=== PATIENT | male | born 1990 | race Caucasian/White ===

== ENCOUNTER 2023-11-16 16:05 | Emergency (ER) | payer OTHER, SELFPAY ==
[2023-11-16 16:16] VITALS: BP 121/77
[2023-11-16 16:35] LABS: % Basophils 0.4 % (0-2); % Eosinophils 1.1 % (0-6); % Immature Granulocytes 0.3 % (0-0.5); % Lymphocytes 2.6 % (20.5-51.1); % Monocytes 4.2 % (1.7-9.3); % Neutrophils 91.4 % (42.2-75.2); Absolute Basophils 0.1 10^3/uL (0-0.2); Absolute Eosinophils 0.1 10^3/uL (0-0.7); Absolute Lymphocytes 0.3 10^3/uL (1.2-3.4); Absolute Monocytes 0.5 10^3/uL (0.1-0.6); Absolute Neutrophils 10.8 10^3/uL (1.4-6.5); Hematocrit 43.5 % (39.0-52.0); Hemoglobin 13.8 g/dL (13.0-18.0); Mean Corp Hgb Conc. 31.7 g/dL (33.0-37.0); Mean Corpuscular Hgb 20.8 pg (27.0-31.0); Mean Corpuscular Volume 65.5 fL (80.0-94.0); Mean Platelet Volume 10.5 fL (7.4-10.4); Nucleated Red Blood Cells % 0 % (-); Platelet Count 294 10^3/uL (130-400); Red Blood Cell Count 6.64 10^6/uL (4.70-6.10); Red Cell Dist. Width 16.4 % (11.5-14.5); White Blood Cell Count 11.8 10^3/uL (4.8-10.8)
[2023-11-16 16:52] LABS: ALT (SGPT) 19 U/L (0-50); AST (SGOT) 25 U/L (17-59); Albumin 4.6 g/dl (3.5-5.0); Alkaline Phosphatase 77 U/L (38-126); Blood Urea Nitrogen 23 mg/dl (9-20); Calcium 9.4 mg/dl (8.4-10.2); Carbon Dioxide 25 mmol/L (22-30); Chloride 100 mmol/L (98-107); Glucose 175 mg/dl (70-99); Lipase 59 U/L (23-300); Potassium 4.5 mmol/L (3.5-5.1); Sodium 134 mmol/L (135-145); Total Bilirubin 1.6 mg/dl (0.2-1.3); Total Protein 7.3 g/dl (6.3-8.2); eGFR > 60.00
[2023-11-16] MEDS: NSS 1000 IV (18:12)
[2023-11-16] MEDS: ZOFRAN 4 MG IV ×2 (18:12→19:58)
[2023-11-16 18:21] LABS: Urine Albumin Trace (Neg - Trace); Urine Bilirubin 1+ (Negative); Urine Character Clear (Clear); Urine Color Yellow; Urine Glucose 1+ (Negative); Urine Ketone 1+ (Negative); Urine Leukocyte Negative (Negative); Urine Nitrite Negative (Negative); Urine Occult Blood Negative (Negative); Urine Urobilinogen 1+ (Neg - 1+)
[2023-11-16] MEDS: DILAUDID 0.5 MG IV (19:58)
[2023-11-16 20:00] VITALS: BP 129/66
[2023-11-16] MEDS: ZITHROMAX 500 MG PO (20:21)
--- NOTE | 2023-11-16 23:32 | ED.GENMED ---
History of Present Illness
General
Chief Complaint: Abdominal Symptoms
Source: patient
Exam Limitations: none
Time Seen by Provider: 11/16/23 17:36
Nursing documentation reviewed up to this point in time: agreed with
Travel History
Have you had any contact with someone who has COVID-19?: No
Do you have any symptoms of coronavirus? Fever > 100 degrees, chills, cough, shortness of breath, sore throat, loss of taste or smell, muscle aches, or headache?: No
History of Present Illness
History of Present Illness:
States he developed vomiting at 12:30 this afternoon. Notes abdominal pain prior to vomiting. Took 3 pepto's without relief. Brought to ED by family for eval. Denies fever/chills.
Past History
Past History
ED Past Medical History: IDDM
ED Past Surgical History: Other (Hernia repair, wisdom tooth extraction, adenoids removed)
Social History
Tobacco: Non-smoker
Alcohol: None
Drug: None
Personal: Single
Living: with family
Employment: Employed
Review of Systems
Review of Systems
Allergies reviewed?: Yes
All Other Systems: ROS reviewed and negative except as documented in HPI and ROS
Constitutional: Reports no symptoms
EENT: Reports no symptoms
Respiratory: Reports no symptoms
Cardiac: Reports no symptoms
ABD/GI: Reports abdominal pain, nausea and vomiting
: Reports no symptoms
Musculoskeletal: Reports no symptoms
Skin: Reports no symptoms
Neurological: Reports no symptoms
Psychiatric: Reports no symptoms
Phy Exam
General Physical Exam
General Presentation: well appearing and mild distress
General age: appears stated age
General Skin: warm and dry
General Habitus: normal
General Mental: alert
General Hydration: appears well hydrated
Course
Orders/Labs/Results
Orders:
Orders
11/16/23 16:20
IV Insert/Care/Rem.- Treatment PRN
11/16/23 16:25
Complete Blood Count/With Diff Urgent
Comprehensive Metabolic Panel Urgent
Lipase Urgent
11/16/23 18:01
0.9% Sodium Chloride 1000 ml [Nss] 1,000 ml IV BOLUS
Ondansetron Injectable [Zofran] 4 mg IV NOW STA
US Abdomen Complete/Upper Urgent
Comment:
Reason For Exam: upper abd pain
11/16/23 18:15
Urinalysis Reflex To Culture Urgent
Date Specimen was Collected: 11/16/23
Time Specimen was Collected: 18:13
11/16/23 19:29
CT Abd/pelvis W Iv Cont Urgent
Comment:
Reason For Exam: abdominal and back pain, vomiting
11/16/23 19:30
HYDROmorphone [Dilaudid] 0.5 mg IV NOW STA
Ondansetron Injectable [Zofran] 4 mg IV NOW STA
11/16/23 20:13
Azithromycin [Zithromax] 500 mg PO NOW STA
Abnormal Lab Results
11/16/23 11/16/23
16:25 18:15
WBC 11.8 H 10^3/uL
(4.8-10.8)
RBC 6.64 H 10^6/uL
(4.70-6.10)
MCV 65.5 L fL
(80.0-94.0)
MCH 20.8 L pg
(27.0-31.0)
MCHC 31.7 L g/dL
(33.0-37.0)
RDW 16.4 H %
(11.5-14.5)
MPV 10.5 H fL
(7.4-10.4)
Absolute Neuts (auto) 10.8 H 10^3/uL
(1.4-6.5)
Absolute Lymphs (auto) 0.3 L 10^3/uL
(1.2-3.4)
Neutrophils % 91.4 H %
(42.2-75.2)
Lymphocytes % 2.6 L %
(20.5-51.1)
Sodium 134 L mmol/L
(135-145)
BUN 23 H mg/dl
(9-20)
Glucose 175 H mg/dl
(70-99)
Total Bilirubin 1.6 H mg/dl
(0.2-1.3)
Urine Ketones 1+ A
(Negative)
Urine Bilirubin 1+ A
(Negative)
Urine Glucose 1+ A
(Negative)
11/16/23 16:25
11/16/23 16:25
Vital Signs
Initial and Last Documented VS:
Initial Vital Signs
Temp Pulse Resp BP Pulse Ox
100 F 85 22 121/77 96
11/16/23 16:16 11/16/23 16:16 11/16/23 16:16 11/16/23 16:16 11/16/23 16:16
Last Documented Vital Signs
Temp Pulse Resp BP Pulse Ox
100 F 97 18 129/66 100
11/16/23 16:16 11/16/23 20:00 11/16/23 20:00 11/16/23 20:00 11/16/23 20:00
*Radiology
Radiology exam reviewed: radiology read reviewed
*Pulse Oximetry
Patient hypoxic: no
*Critical Care Note
Total Time (30-74mins, 75-104mins- exclusive of procedures): Not Applicable
ED Attending Note
-
Portions of this chart may have been created with voice recognition software.� Occasional wrong word or��sound alike� substitutions may have occurred due to the inherent limitations of voice recognition software.
Discharge Plan
Departure
Patient Disposition: Home (Routine Discharge)
Date of Disposition: 11/16/23
Time of Disposition: 20:10
Patient with high blood pressure during this ER visit?: No
Condition: Good
Covid-19: Not Applicable
Discharge Problem:
Enteritis
Instructions: Diarrhea in adolescents and adults, Clear Liquid Diet, Dehydration, Adult (DC)
Prescriptions:
New
azithromycin 500 mg tablet
500 mg PO DAILY 2 Days Qty: 2 0RF
No Action
bismuth subsalicylate [[place] Bismuth] 1 TABLET tablet,chewable
2 tab PO BIDPRN PRN (Reason: nausea/vomiting/upset stomach)
insulin glargine [Lantus Solostar U-100 Insulin] 300 UNITS/3 ML insulin pen
21 units SC HS
insulin glulisine U-100 [Apidra SoloStar U-100 Insulin] 100 UNIT/ML insulin pen
2 unit SC AC Qty: 1 0RF
Rx Instructions:
moderate glucose sliding scale
erythromycin 5 mg/gram (0.5 %) ointment
0.5 inch ophthalmic (eye) QID Qty: 3.5 0RF
Referrals:
Love Agudelo DO [Family Provider] - Tomorrow
Activity Restrictions/Additional Instructions:
Return to the emergency department for fever/chill, increasing pain/vomiting/diarrhea, or for any further concerns.
Interventions
Interventions:
*Risk Screen - Suicide Last Done: 11/16/23 16:16
*General Assessment Last Done: 11/16/23 16:16
*Neglect/Abuse Screening Last Done: 11/16/23 16:16
*Nursing Disposition Last Done: 11/16/23 20:41
LU-Idnzxm-Stgpbphcip Assessment Last Done: 11/16/23 20:00
Discharge Date and Time
Discharge Date/Time: 11/16/23 20:42
Print Language: LUXEMBOURGER
== END 2023-11-16 20:42 | disposition home or self-care (01) ==
LOC: EMR 16:05
PROVIDERS: EMERGENCY PHYSICIAN Emergency Medicine; FAMILY PHYSICIAN Student in an Organized Health Care Education/Training Program
DX: K52.9 Noninfective gastroenteritis and colitis, unspecified (principal); E11.9 Type 2 diabetes mellitus without complications; Z79.4 Long term (current) use of insulin; Z88.8 Allergy status to other drugs, medicaments and biological substances
CPT/HCPCS: 99285; 96375; 96361; 96374; 96376; 74177; 76700; 80053; 81003; 83690; 85025; Q9967

== ENCOUNTER 2024-07-11 19:41 | Inpatient (IN) | payer OTHER, SELFPAY ==
[2024-07-11] VITALS (17 sets, daily range): BP systolic 103–145; BP diastolic 67–84; BMI 28.5
--- NOTE | 2024-07-11 16:45 | ED.GENMED ---
History of Present Illness
<JOSIAH Man Last Filed: 07/11/24 22:16>
General
Chief Complaint: Abdominal Symptoms
Source: patient
Exam Limitations: none
Time Seen by Provider: 07/11/24 16:45
Nursing documentation reviewed up to this point in time: agreed with
History of Present Illness
History of Present Illness:
33-year-old male with past medical history of type 1 diabetes presents emergency department today with concerns of vomiting. Patient states that this started an hour and a half ago. Patient states that the vomiting has since resolved. Patient
denies any nausea. Patient completely asymptomatic at this time. Similar episode happened 2 days ago and he also had diarrhea and he felt hot at the time. He states that his boss was sick with similar symptoms a few days ago. Patient also notes
a mild sore throat. Patient denies any cough, runny nose, sinus pressure, headaches. Patient denies any abdominal pain, fevers or chills, chest pain, shortness of breath. He does note that his boss was sick patient states that when he had
vomiting he had to give an extra dose of insulin.
Past History
<JOSIAH Man Last Filed: 07/11/24 22:16>
Past History
ED Past Medical History: IDDM
ED Past Surgical History: Other (Hernia repair, wisdom tooth extraction, adenoids removed)
Social History
Tobacco: Non-smoker
Alcohol: None
Drug: None
Personal: Single
Living: with family
Employment: Employed
Review of Systems
<JOSIAH Man Last Filed: 07/11/24 22:16>
Review of Systems
All Other Systems: ROS reviewed and negative except as documented in HPI and ROS
Phy Exam
<JOSIAH Man Last Filed: 07/11/24 22:16>
Physical Exam
Physical Exam:
General: Patient is well appearing and in no acute distress; non-toxic
Skin: Warm and dry, no rashes or lesions
Head: Normocephalic, atraumatic
Eyes: Sclera non-icteric. EOMs intact. PERRLA.
Mouth: Mild pharyngeal erythema noted. No intraoral lesions. Uvula midline.
Cardiac: Regular rate and rhythm, no murmurs
Peripheral Vascular: No lower extremity swelling or edema
Pulm: Normal respiratory effort, no wheezes, rales, or rhonchi
Abdomen: No abdominal tenderness to palpation, no palpable masses
Neuro: CN II-XII intact, no focal neurologic deficits.
Psychiatric: Appropriate mood and affect.
Course
<Debora Vásquez PA-C - Last Filed: 07/11/24 22:16>
Orders/Labs/Results
Orders:
Orders
07/11/24 16:45
IV Insert/Care/Rem.- Treatment PRN
07/11/24 17:21
B-Hydroxybutyrate Urgent
Comment: ADDON
COVID-19 Antigen Urgent
Source: Nasal Swab
Complete Blood Count/With Diff Urgent
Comprehensive Metabolic Panel Urgent
Influenza A+B Rapid Molecular Urgent
KUMAR Source: Nasal Swab
Specimen Description:
07/11/24 17:38
Bedside Glucose- Treatment ONCE
07/11/24 18:10
0.9% Sodium Chloride 1000 ml [Nss] 1,000 ml IV BOLUS
07/11/24 18:11
Urinalysis Reflex To Culture Urgent
07/11/24 18:17
Venous Blood Gas Urgent
%Oxygen/Room Air: 96/RA
07/11/24 18:22
Diphenhydramine [Benadryl] 25 mg IV NOW STA
07/11/24 18:30
Reg Insulin 100 Units/100 ml [Novolin R Insulin Infusion] 100 units in 100 ml IV ORDERED RATE
07/11/24 19:29
Admit/Transfer Patient As Directed
Co-Sign Provider:
Level of Care: Inpatient admission
Assign to:: ICU
Physician / Group: simon
Diagnosis: DKA
Reason for Hospitalization: DKA
Expected length of stay greater than two midnights?: Yes
ELOS- Estimated Length of Stay in days: 3
I certify the patient meets the requirements for IP care: Yes
PRN Pain Medication Management As Directed
May give lesser potent ordered pain med per pt: Yes
preference::
Protocol:: Medication orders for pain may be administered in a
manner that supports deferring to patient preference
when the pt is:
- Requesting an ordered lesser potent pain medication.
Least to most potent pain medications are defined
as: acetaminophen < NSAID < tramadol < opioids
(morphine, oxycodone, hydromorphone).
- Requesting a lesser dose of the same medication IF
ORDERED.
- Requesting a less intrusive route of administration
if both routes are prescribed by the provider (PO <
IV).
07/11/24 19:30
Code Status As Directed
Resuscitation Status: Full Code
07/11/24 20:00
Dextrose 5%/0.45%Sodchl 1000ML [D5/0.45%NaCl] 1,000 ml IV 100 mls/hr
07/11/24 20:23
Reg Insulin 100 Units/100 ml [Novolin R Insulin Infusion] 100 units in 100 ml IV PER PROTOCOL
Initial dose in units/hr, then titrate:: 3
07/11/24 21:09
Mix Mill Tender Consult Routine
Consulting Provider: Javy Hodges
Was physician already notified: Yes
Glycohemoglobin (HgbA1c) Routine
Activity As Directed
Activity Level: As Tolerated
Bedside Glucose Monitoring As Directed
Frequency: Q1H
Intake/ Output As Directed
Frequency: Per unit guidelines
Notify MD As Directed
Notify physician if: Nurse to contact provider when glucose reaches 250 to obtain orders for D5 0.45 NaCl
Vital Signs As Directed
Frequency: Per unit guidelines
DX Deep Vein Thrombosis Video Routine
07/12/24 06:00
Complete Blood Count/No Diff IN AM
07/12/24 18:00
Enoxaparin Sodium [Lovenox] 40 mg SC QPM
07/13/24 06:00
Complete Blood Count/No Diff IN AM
07/14/24 06:00
Complete Blood Count/No Diff IN AM
Abnormal Lab Results
07/11/24 07/11/24 07/11/24
17:21 18:06 18:17
RBC 6.21 H 10^6/uL
(4.70-6.10)
MCV 66.0 L fL
(80.0-94.0)
MCH 20.9 L pg
(27.0-31.0)
MCHC 31.7 L g/dL
(33.0-37.0)
RDW 17.2 H %
(11.5-14.5)
MPV 10.5 H fL
(7.4-10.4)
Abs Immat Gran (auto) 0.1 H 10^3/uL
(0-0.05)
Absolute Neuts (auto) 7.4 H 10^3/uL
(1.4-6.5)
Absolute Lymphs (auto) 0.8 L 10^3/uL
(1.2-3.4)
Immature Gran % 0.6 H %
(0-0.5)
Neutrophils % 87.8 H %
(42.2-75.2)
Lymphocytes % 8.9 L %
(20.5-51.1)
VBG pCO2 32 L mmHg
(35-48)
VBG pO2 120 H mmHg
(30-50)
VBG HCO3 18.1 L mmol/L
(22-27)
Carbon Dioxide 13 L* mmol/L
(22-30)
Glucose 297 H mg/dl
(70-99)
Total Bilirubin 1.4 H mg/dl
(0.2-1.3)
Albumin 5.1 H g/dl
(3.5-5.0)
B-Hydroxybutyrate 4.18 H mmol/L
(0.02-0.27)
POC Glucose 218 H mg/dl
(70-99)
07/11/24
19:09
RBC
MCV
MCH
MCHC
RDW
MPV
Abs Immat Gran (auto)
Absolute Neuts (auto)
Absolute Lymphs (auto)
Immature Gran %
Neutrophils %
Lymphocytes %
VBG pCO2
VBG pO2
VBG HCO3
Carbon Dioxide
Glucose
Total Bilirubin
Albumin
B-Hydroxybutyrate
POC Glucose 204 H mg/dl
(70-99)
07/11/24 17:21
07/11/24 17:21
Vital Signs
Initial and Last Documented VS:
Initial Vital Signs
Temp Pulse Resp BP Pulse Ox
98.1 F 98 20 123/82 99
07/11/24 16:02 07/11/24 16:02 07/11/24 16:02 07/11/24 16:02 07/11/24 16:02
Last Documented Vital Signs
Temp Pulse Resp BP Pulse Ox
98.2 F 90 22 116/69 95
07/11/24 21:17 07/11/24 20:45 07/11/24 20:45 07/11/24 20:15 07/11/24 20:45
<Jared Ibarra, DO - Last Filed: 07/11/24 22:22>
Orders/Labs/Results
Orders:
Orders
07/11/24 16:45
IV Insert/Care/Rem.- Treatment PRN
07/11/24 17:21
B-Hydroxybutyrate Urgent
Comment: ADDON
COVID-19 Antigen Urgent
Source: Nasal Swab
Complete Blood Count/With Diff Urgent
Comprehensive Metabolic Panel Urgent
Influenza A+B Rapid Molecular Urgent
KUMAR Source: Nasal Swab
Specimen Description:
07/11/24 17:38
Bedside Glucose- Treatment ONCE
07/11/24 18:10
0.9% Sodium Chloride 1000 ml [Nss] 1,000 ml IV BOLUS
07/11/24 18:11
Urinalysis Reflex To Culture Urgent
07/11/24 18:17
Venous Blood Gas Urgent
%Oxygen/Room Air: 96/RA
07/11/24 18:22
Diphenhydramine [Benadryl] 25 mg IV NOW STA
07/11/24 18:30
Reg Insulin 100 Units/100 ml [Novolin R Insulin Infusion] 100 units in 100 ml IV ORDERED RATE
07/11/24 19:29
Admit/Transfer Patient As Directed
Co-Sign Provider:
Level of Care: Inpatient admission
Assign to:: ICU
Physician / Group: simon
Diagnosis: DKA
Reason for Hospitalization: DKA
Expected length of stay greater than two midnights?: Yes
ELOS- Estimated Length of Stay in days: 3
I certify the patient meets the requirements for IP care: Yes
PRN Pain Medication Management As Directed
May give lesser potent ordered pain med per pt: Yes
preference::
Protocol:: Medication orders for pain may be administered in a
manner that supports deferring to patient preference
when the pt is:
- Requesting an ordered lesser potent pain medication.
Least to most potent pain medications are defined
as: acetaminophen < NSAID < tramadol < opioids
(morphine, oxycodone, hydromorphone).
- Requesting a lesser dose of the same medication IF
ORDERED.
- Requesting a less intrusive route of administration
if both routes are prescribed by the provider (PO <
IV).
07/11/24 19:30
Code Status As Directed
Resuscitation Status: Full Code
07/11/24 20:00
Dextrose 5%/0.45%Sodchl 1000ML [D5/0.45%NaCl] 1,000 ml IV 100 mls/hr
07/11/24 20:23
Reg Insulin 100 Units/100 ml [Novolin R Insulin Infusion] 100 units in 100 ml IV PER PROTOCOL
Initial dose in units/hr, then titrate:: 3
07/11/24 21:09
Mix Mill Tender Consult Routine
Consulting Provider: Javy Hodges
Was physician already notified: Yes
Glycohemoglobin (HgbA1c) Routine
Activity As Directed
Activity Level: As Tolerated
Bedside Glucose Monitoring As Directed
Frequency: Q1H
Intake/ Output As Directed
Frequency: Per unit guidelines
Notify MD As Directed
Notify physician if: Nurse to contact provider when glucose reaches 250 to obtain orders for D5 0.45 NaCl
Vital Signs As Directed
Frequency: Per unit guidelines
DX Deep Vein Thrombosis Video Routine
07/12/24 06:00
Complete Blood Count/No Diff IN AM
07/12/24 18:00
Enoxaparin Sodium [Lovenox] 40 mg SC QPM
07/13/24 06:00
Complete Blood Count/No Diff IN AM
07/14/24 06:00
Complete Blood Count/No Diff IN AM
Abnormal Lab Results
07/11/24 07/11/24 07/11/24
17:21 18:06 18:17
RBC 6.21 H 10^6/uL
(4.70-6.10)
MCV 66.0 L fL
(80.0-94.0)
MCH 20.9 L pg
(27.0-31.0)
MCHC 31.7 L g/dL
(33.0-37.0)
RDW 17.2 H %
(11.5-14.5)
MPV 10.5 H fL
(7.4-10.4)
Abs Immat Gran (auto) 0.1 H 10^3/uL
(0-0.05)
Absolute Neuts (auto) 7.4 H 10^3/uL
(1.4-6.5)
Absolute Lymphs (auto) 0.8 L 10^3/uL
(1.2-3.4)
Immature Gran % 0.6 H %
(0-0.5)
Neutrophils % 87.8 H %
(42.2-75.2)
Lymphocytes % 8.9 L %
(20.5-51.1)
VBG pCO2 32 L mmHg
(35-48)
VBG pO2 120 H mmHg
(30-50)
VBG HCO3 18.1 L mmol/L
(22-27)
Carbon Dioxide 13 L* mmol/L
(22-30)
Glucose 297 H mg/dl
(70-99)
Total Bilirubin 1.4 H mg/dl
(0.2-1.3)
Albumin 5.1 H g/dl
(3.5-5.0)
B-Hydroxybutyrate 4.18 H mmol/L
(0.02-0.27)
POC Glucose 218 H mg/dl
(70-99)
07/11/24
19:09
RBC
MCV
MCH
MCHC
RDW
MPV
Abs Immat Gran (auto)
Absolute Neuts (auto)
Absolute Lymphs (auto)
Immature Gran %
Neutrophils %
Lymphocytes %
VBG pCO2
VBG pO2
VBG HCO3
Carbon Dioxide
Glucose
Total Bilirubin
Albumin
B-Hydroxybutyrate
POC Glucose 204 H mg/dl
(70-99)
07/11/24 17:21
07/11/24 17:21
Vital Signs
Initial and Last Documented VS:
Initial Vital Signs
Temp Pulse Resp BP Pulse Ox
98.1 F 98 20 123/82 99
07/11/24 16:02 07/11/24 16:02 07/11/24 16:02 07/11/24 16:02 07/11/24 16:02
Last Documented Vital Signs
Temp Pulse Resp BP Pulse Ox
98.2 F 90 22 116/69 95
07/11/24 21:17 07/11/24 20:45 07/11/24 20:45 07/11/24 20:15 07/11/24 20:45
<Debora Vásquez PA-C - Last Filed: 07/11/24 22:16>
MDM/Problems Addressed
Differential Diagnosis Includes:
ddx include gastroenteritis, viral syndrome, GERD, COVID
MDM/Problems Addressed:
33-year-old male presents emergency department today with concerns of nausea and vomiting. He is a type I diabetic. Here emergency department, he notes that his symptoms have resolved, he is afebrile. No abdominal tenderness on exam. Labs
resulted showing concern for diabetic ketoacidosis. Fluids started and insulin ordered. Potassium within normal limits. Patient referred for admission.
Chronic conditions affecting care:
type 1 diabetes
<Debora Vásquez PA-C - Last Filed: 07/11/24 22:16>
*Critical Care Note
Total Time (30-74mins, 75-104mins- exclusive of procedures): Not Applicable
<Jared Ibarra DO - Last Filed: 07/11/24 22:22>
*Critical Care Note
Total Time (30-74mins, 75-104mins- exclusive of procedures): 30
comment:
Critical care statement: A total of 30 minutes of critical care time was provided for this patient. This includes management of unstable vital signs, evaluation of the patient at bedside, reviewing the patient's pertinent medical records, discussion
with consultants, review of old EKGs and review of pertinent medical records. This time with separate from time utilized to perform the aforementioned documented procedures
ED Attending Note
<Debora Vásquez PA-C - Last Filed: 07/11/24 22:16>
-
Portions of this chart may have been created with voice recognition software.� Occasional wrong word or��sound alike� substitutions may have occurred due to the inherent limitations of voice recognition software.
<Jared Ibarra DO - Last Filed: 07/11/24 22:22>
ED Attending Note
Patient seen and examined by attending physician: Yes
I performed a history and physical exam of patient and discussed management with resident, I reviewed resident's note and agree with documented findings and plan of care.: Yes
ED Attending Note:
I have reviewed and agree with history and treatment plan by Debora Vásquez. My exam revealed 33-year-old male no acute distress, abdomen exam benign. No respiratory distress. Labs and symptoms consistent with DKA. Admit to hospitalist. IV
insulin and IV fluids given.
Discharge Plan
Departure
Patient Disposition: Admit
Date of Disposition: 07/11/24
Time of Disposition: 19:05
Admit to: Med/Surg
Presentation/result/management discussed w/ accepting MD/DO: Hospitalist
Patient with high blood pressure during this ER visit?: Yes
Condition: Fair
Discharge Problem:
Diabetic ketoacidosis
Interventions
Interventions:
*Risk Screen - Suicide Last Done: 07/11/24 16:02
*General Assessment Last Done: 07/11/24 16:02
*Neglect/Abuse Screening Last Done: 07/11/24 16:02
ED- Fall Risk Assessment Last Done: 07/11/24 17:29
*ED COVID-19 Vaccine History Last Done: 07/11/24 17:29
*Nursing Disposition Last Done: 07/11/24 21:15
SU-Iwefow-Zvhrhnlxtd Assessment Last Done: 07/11/24 17:31
Discharge Date and Time
Discharge Date/Time: 07/11/24 21:15
[2024-07-11 17:45] LABS: % Basophils 0.6 % (0-2); % Eosinophils 0.2 % (0-6); % Immature Granulocytes 0.6 % (0-0.5); % Lymphocytes 8.9 % (20.5-51.1); % Monocytes 1.9 % (1.7-9.3); % Neutrophils 87.8 % (42.2-75.2); Absolute Basophils 0.1 10^3/uL (0-0.2); Absolute Immature Granulocytes 0.1 10^3/uL (0-0.05); Absolute Lymphocytes 0.8 10^3/uL (1.2-3.4); Absolute Monocytes 0.2 10^3/uL (0.1-0.6); Absolute Neutrophils 7.4 10^3/uL (1.4-6.5); Mean Corp Hgb Conc. 31.7 g/dL (33.0-37.0); Mean Corpuscular Hgb 20.9 pg (27.0-31.0); Mean Platelet Volume 10.5 fL (7.4-10.4); Nucleated Red Blood Cells % 0 % (-); Platelet Count 369 10^3/uL (130-400); Red Blood Cell Count 6.21 10^6/uL (4.70-6.10); Red Cell Dist. Width 17.2 % (11.5-14.5); White Blood Cell Count 8.4 10^3/uL (4.8-10.8)
[2024-07-11 17:51] LABS: COVID-19 Antigen Negative (Negative)
[2024-07-11 18:06] LABS: ALT (SGPT) 42 U/L (0-50); AST (SGOT) 42 U/L (17-59); Albumin 5.1 g/dl (3.5-5.0); Alkaline Phosphatase 102 U/L (38-126); Blood Urea Nitrogen 20 mg/dl (9-20); Calcium 10.1 mg/dl (8.4-10.2); Carbon Dioxide 13 mmol/L (22-30); Chloride 98 mmol/L (98-107); Estimated Creatinine Clearance 117 ml/min; Glucose 297 mg/dl (70-99); Potassium 4.7 mmol/L (3.5-5.1); Sodium 139 mmol/L (135-145); Total Bilirubin 1.4 mg/dl (0.2-1.3); Total Protein 7.7 g/dl (6.3-8.2); eGFR > 60.00
[2024-07-11 18:07] LABS: Glucose - Point of Care 218 mg/dl (70-99)
[2024-07-11] MEDS: NSS 1000 IV (18:20)
[2024-07-11 18:31] LABS: Venous Blood Gas B.E. -6.3 mmol/L (-4 to +4); Venous Blood Gas HCO3 18.1 mmol/L (22-27); Venous Blood Gas O2 Sat % 99.4 %; Venous Blood Gas pCO2 32 mmHg (35-48); Venous Blood Gas pH 7.36 (7.32-7.43); Venous Blood Gas pO2 120 mmHg (30-50)
[2024-07-11 18:37] LABS: B-Hydroxybutyrate 4.18 mmol/L (0.02-0.27)
[2024-07-11 18:40] LABS: Venous Blood Gas O2 Therapy 96/RA
--- NOTE | 2024-07-11 19:07 | HPS.HSE ---
Family Physician
-
Family Physician: NOT KNOW UNKNOWN - PT DOES
Chief Complaint
-
vomitting
History of Present Illness
33-year-old male with past medical history of type 1 diabetes presents emergency department today with concerns of vomiting. he vomited twice on . he also had an diarrhea on . he was fine on Friday and Friday. today afternoon, he
vomited couple times. Patient denies any cough, runny nose, sinus pressure, headaches. Patient denies any abdominal pain, fevers or chills, chest pain, shortness of breath. he denied dysuria or hematuria. at home his blood sugar was in 600's. he
took 15 units of insulin. he has not been taking Lantus, as his insurance does not cover.
noted dehydrated. admitting for further management.
Medical History
Past Medical History
Past Medical History: Reports Other
Additional Past Medical History:
Hyperlipidemia
Type 1 diabetes
Past Surgical History: Reports Other
Additional Past Surgical History:
adenoidectomy
hernia repair
Social History
Tobacco: Other (nicotine pouch)
Alcohol: Occasional
Drug: None
Employment: Employed
Family History
Family History: Not pertinent
Allergies / Home Medications
Allergies reflects when Allergies were last updated in [facility].
Home Medications with original date entered in [facility]
Allergy/Medication List:
Allergies
Allergy/AdvReac Type Severity Reaction Status Date / Time
insulin detemir Allergy Rash Verified 07/11/24 16:07
[From Levemir U-100 Insulin]
insulin glulisine Allergy Rash Verified 07/11/24 16:07
[From Apidra U-100 Insulin]
insulin lispro Allergy Rash Verified 07/11/24 16:07
[From Humalog Mix]
insulin lispro protamine Allergy Rash Verified 07/11/24 16:07
[From Humalog Mix]
Home Medications
insulin glargine 100 unit/mL (3 mL) subcutaneous pen (Lantus Solostar U-100 Insulin) 20 units SC HS Diabetes 02/05/21
ibuprofen 200 mg tablet 600 mg PO DAILY 07/11/24
insulin aspart U-100 100 unit/mL (3 mL) subcutaneous pen (Novolog FlexPen U-100 Insulin aspart) 10 - 15 unit SC TID 07/11/24
therapeutic multivitamin 1 tab PO DAILY 07/11/24
Review of Systems
-
Constitutional: Reports No Symptoms
EENT: Reports No Symptoms
Respiratory: Reports No Symptoms
Cardiac: Reports No Symptoms
Abdomen/GI: Reports Vomiting
: Reports No Symptoms
Musculoskeletal: Reports No Symptoms
Skin: Reports No Symptoms
Neurological: Reports No Symptoms
Endocrine: Reports No Symptoms
Hematologic/Lymphatic: Reports No Symptoms
Psych: Reports No Symptoms
Physical Exam
Vital Signs
Vital Signs
Temp Pulse Resp BP Pulse Ox
98.1 F 98 16 119/73 96
07/11/24 16:02 07/11/24 18:45 07/11/24 18:45 07/11/24 18:00 07/11/24 18:45
Physical Exam
General: Well Developed, Well Nourished and No Apparent Distress
HEENT: NormoCephalic, Moist mucous membranes and Atraumatic
Respiratory: Clear
Cardiac: S1/S2 and Regular Rhythm; No Murmur or Rub
GI: Soft, Non Tender, Non Distended and Normal Bowel Sounds; No Organomegaly
Rectal: Deferred by Provider
Musculoskeletal: No Clubbing, No Cyanosis and No Edema
Skin: No Rash
Neuro: AO x 3 and Nonfocal/grossly intact
Psych: Calm
Laboratory Results
-
07/11/24 17:21
07/11/24 17:21
Laboratory Results
Total Bilirubin 1.4 mg/dl (0.2-1.3) H 07/11/24 17:21
AST 42 U/L (17-59) 07/11/24 17:21
ALT 42 U/L (0-50) 07/11/24 17:21
Alkaline Phosphatase 102 U/L (38-126) 07/11/24 17:21
Data Reviewed
-
Lab Data: Labs Reviewed by me
Impression/Plan
-
# N/V likely from Diabetic ketoacidosis
# Type 1 diabetes
-On insulin drip
-continue fluids
-monitor BMP every 2 hours, and blood glucose
# anion gap Metabolic acidosis likely from dehydration
- fluids continued
-BMp in am
#DVT prophylaxis
-Lovenox
#CODE status
-full code
[2024-07-11 19:10] LABS: Glucose - Point of Care 204 mg/dl (70-99)
--- NOTE | 2024-07-11 19:24 | EDRN ---
Report received on patient, went in to check blood sugar prior to starting insulin drip, patients blood sugar was 204, he still has 300cc remaining of his normal saline, Hospitalist at bedside right after I checked, informed her that the blood sugar
was 204, asked to hold off on insulin drip.
--- NOTE | 2024-07-11 19:39 | EDRN ---
Hospitalist now wants toe insulin drip started however will put in some dextrose also so patients blood sugar does not drop too much.
--- NOTE | 2024-07-11 19:43 | W.PN.UPDATE ---
Update Note
Progress Note Update
Patient seen in conjunction with MODESTA. I agree with the findings on history and physical as well as the assessment and plan unless stated otherwise.
Briefly, this is a 33-year-old male with history of type 1 diabetes who uses short acting Premeal insulin as well as Lantus 17 units at bedtime with insulin since sensitivity of 7 - 9 g of Unit of insulin presents to the emergency department with
persistent vomiting. Patient reports 2 days earlier he developed vomiting and diarrhea following exposure to food poisoning. This initially improved. However he arose today with again nausea vomiting. He is initial glucose was around 100 but
later on due to persistent vomiting up to 20 times today he measured a blood glucose of 600. He gave self 15 units of fast acting insulin and decided come to the ED. Patient has not had any further vomiting while in the ED. He denies fevers or
chills. He denies any abdominal pain currently.
Patient reported that he is run out of his Lantus which is supposed to take 70 units at bedtime since 1 year ago. His last use of Lantus was about 3 weeks ago. He has not been given himself fast acting insulin. He reports a prior episode of DKA
in the setting of injection of compromised insulin.
In emergency department was afebrile blood pressure was 119/73 and he was tachycardic to the low 100s. Was not saturation was normal on room air. Chemistries show a bicarb of 13 with an anion gap of 28. The rest of the electrolytes with potassium
of 4.7 sodium 139 with normal BUN/creatinine. Glucose was 297. Beta-hydroxybutyrate was 4.18.
pH 7.36 with a pCO2 of 32 and a bicarb of 18
Patient with mild to moderate DKA and hypovolemic
Plan
DKA
- admit to icu
- 1.5 L NS bolus
- K 4.7, start insulin gtt, accuchecks q 1 hr
- for blood glucose < 200, run D5 1/2 NS at 150 ml/hr, if blood glucose > 200, 1/2 NS at 150 ml/hr
- chemistry q 2 hour, follow protocol
- full liquid diet, advance as tolerated
- antiemetics prn
- patient can be transitioned in AM. He is on lantus 70 hs and pre-meal rapid insulin doses of 7-9 carb grams / unit
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
DVT PPX -
Code status - Full code
[2024-07-11] MEDS: NSS 500 IV (20:00)
[2024-07-11] MEDS: D5/0.45%NACL 1000 IV (20:01)
[2024-07-11 20:28] LABS: Glucose - Point of Care 245 mg/dl (70-99)
[2024-07-11] MEDS: NOVOLIN R INSULIN INFUSION 100 IV (20:28)
--- NOTE | 2024-07-11 20:30 | EDRN ---
Went to start insulin on patient ordered dose was 0.5units/0.5mL Hr. Pump would not allow this spoke with pharmacy who stated they would speak with the hospitalist, after talking with pharmacy and hospitalist, order on admission side to start
3units/hr will be started, blood sugar rechecked to make sure blood sugar was in range for this, blood sugar was 245, insulin started.
--- NOTE | 2024-07-11 21:00 | PTCARENOTE ---
rec`d pt at 2100 from ED. AAOx3 pt on insulin gtt for DKA. SR to ST on monitor. HR 90s. room air. POX 97%. pt walks to bathroom. rt 20 AC and 22 rt hand. d5 1/2 NS at 100. call mcgrath in reach, safe environment maintained. family at bedside.
[2024-07-11 21:26] LABS: Glucose - Point of Care 196 mg/dl (70-99)
[2024-07-11 22:14] LABS: Glucose - Point of Care 175 mg/dl (70-99)
[2024-07-11 22:40] LABS: APTT 18.6 Sec (23.4-35.0); INR 0.93; PT 12.8 Sec (11.4-14.6)
[2024-07-11 22:45] LABS: Blood Urea Nitrogen 15 mg/dl (9-20); Calcium 8.7 mg/dl (8.4-10.2); Carbon Dioxide 18 mmol/L (22-30); Chloride 103 mmol/L (98-107); Estimated Creatinine Clearance > 125 ml/min; Glucose 177 mg/dl (70-99); Magnesium 1.9 mg/dl (1.6-2.3); Potassium 4.3 mmol/L (3.5-5.1); Sodium 137 mmol/L (135-145); eGFR > 60.00
[2024-07-11 23:14] LABS: Glucose - Point of Care 145 mg/dl (70-99)
[2024-07-12] VITALS (32 sets, daily range): BP systolic 100–143; BP diastolic 64–95; BMI 28.7
--- NOTE | 2024-07-12 | PTCARENOTE ---
pt reassessed. no changes in pt assessment. call mcgrath in reach.
[2024-07-12 00:14] LABS: Glucose - Point of Care 125 mg/dl (70-99)
[2024-07-12 01:12] LABS: Glucose - Point of Care 130 mg/dl (70-99)
[2024-07-12 02:14] LABS: Glucose - Point of Care 123 mg/dl (70-99)
[2024-07-12 02:44] LABS: Blood Urea Nitrogen 15 mg/dl (9-20); Calcium 8.2 mg/dl (8.4-10.2); Carbon Dioxide 22 mmol/L (22-30); Chloride 105 mmol/L (98-107); Estimated Creatinine Clearance > 125 ml/min; Glucose 128 mg/dl (70-99); Potassium 3.8 mmol/L (3.5-5.1); Sodium 138 mmol/L (135-145); eGFR > 60.00
[2024-07-12 03:14] LABS: Glucose - Point of Care 129 mg/dl (70-99)
[2024-07-12 04:15] LABS: Glucose - Point of Care 137 mg/dl (70-99)
[2024-07-12 05:09] LABS: Glucose - Point of Care 145 mg/dl (70-99)
[2024-07-12] MEDS: D5/0.45%NACL 1000 IV (05:55)
[2024-07-12 05:56] LABS: Venous Blood Gas B.E. -1.1 mmol/L (-4 to +4); Venous Blood Gas HCO3 23.5 mmol/L (22-27); Venous Blood Gas pCO2 38 mmHg (35-48); Venous Blood Gas pO2 120 mmHg (30-50)
[2024-07-12 06:03] LABS: Hematocrit 34.1 % (39.0-52.0); Hemoglobin 11.4 g/dL (13.0-18.0); Mean Corp Hgb Conc. 33.4 g/dL (33.0-37.0); Mean Corpuscular Hgb 21.4 pg (27.0-31.0); Mean Corpuscular Volume 64.1 fL (80.0-94.0); Mean Platelet Volume 10.3 fL (7.4-10.4); Platelet Count 346 10^3/uL (130-400); Red Blood Cell Count 5.32 10^6/uL (4.70-6.10); White Blood Cell Count 5.6 10^3/uL (4.8-10.8)
[2024-07-12 06:17] LABS: Blood Urea Nitrogen 14 mg/dl (9-20); Calcium 8.6 mg/dl (8.4-10.2); Carbon Dioxide 20 mmol/L (22-30); Chloride 104 mmol/L (98-107); Estimated Creatinine Clearance > 125 ml/min; Glucose 142 mg/dl (70-99); Phosphorus 3.4 mg/dl (2.5-4.5); Potassium 3.7 mmol/L (3.5-5.1); Sodium 137 mmol/L (135-145); eGFR > 60.00
--- NOTE | 2024-07-12 07:06 | CON.INTV ---
Consultation
Consultation Request
Date/Time Consultation Requested: 07/12/24
Date/Time Consultation Performed: 07/12/24
Performing Provider: Domitila
Reason for Consultation: DKA
Medical History
-
History of Present Illness:
Patient is a 33-year-old male with past medical history of type 1 diabetes presents to ER with vomiting, diarrhea on . Has been admitted for DKA in past in 2020. He notes that his BS at home was in 600's. He took 15 units of insulin. He
has not been taking Lantus, as he notes he ran out and his insurance does not cover. Had been working with his OP Endo (Octaviano Garcia) on obtaining an insulin pump but could not get correct needles for this, had not yet started on therapy. Labs in
ER confirming DKA with AG 28, admitted to ICU for insulin gtt.
Past Medical History
Past Medical History: Other (see list below)
Social History
Tobacco: Non-smoker
Alcohol: None
Drug: None
Family History
Family History: Reviewed & Not Pertinent
Allergies / Home Medications
Allergies
Allergy/AdvReac Type Severity Reaction Status Date / Time
insulin detemir Allergy Rash Verified 07/11/24 16:07
[From Levemir U-100 Insulin]
insulin glulisine Allergy Rash Verified 07/11/24 16:07
[From Apidra U-100 Insulin]
insulin lispro Allergy Rash Verified 07/11/24 16:07
[From Humalog Mix]
insulin lispro protamine Allergy Rash Verified 07/11/24 16:07
[From Humalog Mix]
Home Medications
�Medication �Instructions �Recorded �Confirmed �Last Taken �Type
insulin glargine 100 unit/mL (3 20 units SC HS Diabetes 02/05/21 07/11/24 3 Weeks Ago History
mL) subcutaneous pen (Lantus ~06/20/24
Solostar U-100 Insulin)
ibuprofen 200 mg tablet 600 mg PO DAILY 07/11/24 07/11/24 07/11/24 History
insulin aspart U-100 100 unit/mL 10 - 15 unit SC TID 07/11/24 07/11/24 07/11/24 History
(3 mL) subcutaneous pen (Novolog 15 units
FlexPen U-100 Insulin aspart)
therapeutic multivitamin 1 tab PO DAILY 07/11/24 07/11/24 07/11/24 History
Review of Systems
-
History Source: Patient
All other systems: Negative unless noted
Vitals / Labs / Diagnostic Testing
Vital Signs
Temp Pulse Resp BP Pulse Ox
97.9 F 81 24 134/84 96
07/12/24 03:05 07/12/24 06:00 07/12/24 06:00 07/12/24 05:15 07/12/24 06:00
Lab Data
07/12/24 05:43
Laboratory Results
07/11/24
22:20
PT 12.8
INR 0.93
APTT 18.6 L
Microbiology
07/11/24 17:21 Nasal Swab Influenza Types A & B (ISSA) - Final
Negative for Influenza A & B, NAAT
Negative results must be combined with clinical observations
and patient history.
Nucleic Acid Amplification test (NAAT)performed on the
[employer] platform.
Diagnostic Testing:
Physical Exam
-
HEENT: Normocephalic, Anicteric and Moist Mucous Membranes
Cardiovascular: S1/S2 and Regular Rhythm
Respiratory: Clear and Non-Labored Respirations
GI: Soft, Non Distended and Non Tender
Neurology: Awake, Alert, Oriented and No Motor Deficits
Skin: Warm, Dry and Good Color
General: Comfortable and Other (NAD)
Assessment
-
Patient is a 33-year-old male with past medical history of type 1 diabetes presents to ER with vomiting, diarrhea on . Has been admitted for DKA in past in 2020. He notes that his BS at home was in 600's. He took 15 units of insulin. He
has not been taking Lantus, as he notes he ran out and his insurance does not cover. Had been working with his OP Endo (Octaviano Garcia) on obtaining an insulin pump but could not get correct needles for this, had not yet started on therapy. Labs in
ER confirming DKA with AG 28, admitted to ICU for insulin gtt.
DKA-initial blood sugar 572
Ketonuria
Anion gap 28
Prior A1c 12.3%
Conditions present prior to admission:
DKA admission 01/2021
Qjlcdajj-zhmvgdr-zorbfvjbk since 22 years old-03/2013
Hernia repair/wisdom teeth extraction/adenoids removed
Plan
DKA, admitting BS elevated, AG 28
Started on insulin drip, can wean today following protocol, start D5 IVFs
Consult diabetic nurse for insulin recommendations
Can restart diet once able to bridge
H/o poorly controlled diabetes, hopeful transition to home meds
HbA1c 10.6, improved from prior 12.3--since last DKA admission he had been trying to remain compliant
Admits triggers include access to care
NPO for now
Diet transition following DKA protocol
GI ppx: not indicated, no h/o GERD
Hemodynamically stable, not requiring pressors.
No prior h/o cardiac disease
ECHO - none in past
Monitor on telemetry
Oxygen needs: Stable on RA
No prior h/o pulmonary disease
CXR without acute disease
Aspiration precautions
Creat at baseline, follow UO
Acid/base status: AGMA 2/2 DKA, follow until AG <12
No prior known history of renal disease
No signs/symptoms suspicious for infectious etiology at this time.
Will observe off antibiotics for now.
Follow fever trend, WBC count.
DVT ppx SCDs
If able to transition off drip, can transfer out of ICU. We will sign off upon transfer.
Diagnostic Data
Chest X-Ray: 07/11/24- Unremarkable exam
CT Scan: AP 11/16/23- Slightly prominent fluid-filled loops of small bowel in the left hemiabdomen are suspicious for a mild enteritis. No other acute process in the abdomen or pelvis.
ABG room air 02/05/21--/7.27
Echo:
PFT's:
Reports and relevant images were personally reviewed.
-----
Critical Care time 55 mins -- The patient is admitted for acute critical illness for the treatment of vital organ failure and/or prevention of further life-threatening conditions. Total care includes time spent in review of history, physical exam,
medications, hemodynamic/ventilator parameters, laboratory data, imaging and discussion with house staff, pharmacy, respiratory therapy, mud trucker, and nursing.
[2024-07-12 07:21] LABS: Glucose - Point of Care 164 mg/dl (70-99)
[2024-07-12 07:25] LABS: Urine Albumin Negative (Neg - Trace); Urine Bilirubin Negative (Negative); Urine Character Clear (Clear); Urine Color Yellow; Urine Glucose 3+ (Negative); Urine Ketone 3+ (Negative); Urine Leukocyte Negative (Negative); Urine Nitrite Negative (Negative); Urine Occult Blood Negative (Negative); Urine Specific Gravity 1.025 (<1.030); Urine Urobilinogen Negative (Neg - 1+)
[2024-07-12 08:17] LABS: Glucose - Point of Care 112 mg/dl (70-99)
--- NOTE | 2024-07-12 09:17 | PN.DE.MGMTRT ---
Insulin Management
- -
07/12/2024: Diabetes management Consult
33 year old male admitted with D/N/V due to DKA, managed on DKA protocol.
PMH: T1DM x 22 years. At home his blood sugar was in 600's, he took 15 units of short acting insulin and felt better initially but then felt bad shortly after that.
Pt is awake, alert, resting in bed, in ICU. Dad at bedside very supportive. Pt able to discuss diabetes mgt.
Reports he was using a tandem insulin pump with a CGM- Dexcom G7 but changed insurance which disrupted his usual order of refills and that the supply company could not provide him with any more refills for his CGM, insulin and pump supplies.
Says he started taking Lantus and NovoLog AC, which was ordered by his Endocrine office- Octaviano NG. He states that he started out taking 20 units of Lantus@ HS and NovoLog 10-15 units AC, but his insulin requirements kept going up and he
started increasing his insulin doses, with the most recent dose of 70 units @ HS and NovoLog 20 units AC.
He has been using a manually glucose meter that he got over the counter from [employer]. Offered pt a new meter but he declined stating the supplies are cost prohibitive and that the OTC supplies are much more affordable.
States he run out of Lantus 2 weeks ago and that his NovoLog is about to run out as well. He is requesting for a refill for both Lantus and NovoLog
Glucose has been well controlled in range of 112 to 164, requiring 0.5 to 2 units of insulin/hr. All GI sx have resolved, a diet has been ordered.
Will transition off drip to SQ insulin. Give Lantus 10 units now. Drip off in 1 hr after administering Lantus.
Start NovoLog 4 units and moderate corrective with meals.
Contacted pt's Endo office and requested a refill for his CGM per Dad's request.
Will send Rx for Lantus and NovoLog to his pharmacy
Diabetes History
- -
Type of Diabetes: 1
Pre-Admission Diabetes Regimen
07/11/24 07/11/24 07/11/24
17:21 21:09 22:20
Creatinine 0.9 Cancelled 0.8
07/11/24 07/12/24 07/12/24
23:09 02:07 05:43
Creatinine Cancelled 0.7 0.7
07/12/24 07/12/24 07/12/24
05:43 14:00 18:00
Creatinine Cancelled Cancelled Cancelled
07/12/24
22:00
Creatinine Cancelled
Insulin Pump Settings
IP Diabetes Regimen
07/11/24 07/11/24 07/11/24
17:21 18:06 19:09
Glucose 297 H
POC Glucose 218 H 204 H
07/11/24 07/11/24 07/11/24
20:27 21:09 21:15
Glucose Cancelled
POC Glucose 245 H 196 H
07/11/24 07/11/24 07/11/24
22:01 22:20 23:02
Glucose 177 H
POC Glucose 175 H 145 H
07/11/24 07/12/24 07/12/24
23:09 00:02 01:00
Glucose Cancelled
POC Glucose 125 H 130 H
07/12/24 07/12/24 07/12/24
02:03 02:07 03:03
Glucose 128 H
POC Glucose 123 H 129 H
07/12/24 07/12/24 07/12/24
04:02 04:57 05:43
Glucose 142 H
POC Glucose 137 H 145 H
07/12/24 07/12/24 07/12/24
05:43 07:09 08:06
Glucose Cancelled
POC Glucose 164 H 112 H
07/12/24 07/12/24 07/12/24
14:00 18:00 22:00
Glucose Cancelled Cancelled Cancelled
POC Glucose
Patient Education
[2024-07-12 09:40] LABS: Glucose - Point of Care 253 mg/dl (70-99)
[2024-07-12 10:38] LABS: Blood Urea Nitrogen 15 mg/dl (9-20); Calcium 8.3 mg/dl (8.4-10.2); Carbon Dioxide 20 mmol/L (22-30); Chloride 102 mmol/L (98-107); Estimated Creatinine Clearance > 125 ml/min; Glucose 277 mg/dl (70-99); Potassium 3.3 mmol/L (3.5-5.1); Sodium 135 mmol/L (135-145); eGFR > 60.00
[2024-07-12 11:06] LABS: Glucose - Point of Care 205 mg/dl (70-99)
[2024-07-12 11:17] LABS: Glycohemoglobin (HgbA1c) 10.6 % (4.0-5.6)
[2024-07-12 12:12] LABS: Glucose - Point of Care 125 mg/dl (70-99)
[2024-07-12] MEDS: LANTUS 0.1 UNITS SC (12:23)
--- NOTE | 2024-07-12 12:40 | CM ---
CM following re: discharge planning.
Discussed in Rounds, reviewed pt's chart, met with pt and pt's father at bedside.
Pt is a 33 year old male, admitted with primary dx of N/V likely from Diabetic ketoacidosis.
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
Pt reports his insurance does not cover Lantus that's why he run out of Lantus. CM called pt's prescription plan [phone], spoke to loss prevention representative Eula and she confirmed that Lantus is covered by insurance and plast time pt refilled Lantus was
05/05/24 for 38 days and there is no issue with covering pt's medication.
CM spoke to [facility] pharmacy loss prevention representative Jacey in [place] and she confirmed that pt last time refilled Lantus in 05/05/24 for 39 days and pt's co-pay is $63.25.
CM met with pt again and pt's father presents at bedside. Pt stated he chose not to refill Lantus because he did not want to spend 4$63.25 and he felt uncomfortable to ask money from his parents. Pt's father brought his disappointment feelings,
expressed his argument in a very polite way and he stated there will be no problem to cover Lantus. Pt brought his unhappy feelings and he stated: 'I am not going to ask money from my older parents'. Emotional support offered and provided. Pt stated
he has [facility] Medicaid insurance also and not utilizing it because his diabetes Dr does not accept Medicaid. Change medical provider to someone who accepts medicaid discussed with the pt and pt expressed his agreement. Pt stated he will come
to [facility] residency program. Pt's father stated that he and his spouse will help to pay for Lantus if needed. Again, pt expressed disagreement and he stated he has last class and he will graduate from [employer] with a degree of
Business administration and he hopes to find a better paying job.
Pharmacy: [facility].
D/C plan: home with anticipated no needs. Father to transport at discharge.
CM will follow with discharge plan updates as hospitalization progresses
--- NOTE | 2024-07-12 13:11 | W.PN.HOSP.TC ---
Today's Communication/Plan
-
see plan
Assessment / Plan
Assessment / Plan
Gen: NAD, AAOx3.
Eyes: EOMI, PERRLA, no scleral icterus.
Neck: supple.
CV: RRR, +S1/S2, no m/r/g.
Resp: CTAB, no rales, wheezes, or rhonchi.
Abd: +BS, soft, NT, ND
Skin: No rashes.
Neuro: CN 2-12 intact, non-focal.
Psych: Normal mood and affect.
DKA:
-due to noncompliance with basal/long-acting insulin
-AG now closed after insulin gtt
-Lantus 10U given at 1200 today, stop insulin gtt 1 hour after Lantus given
-cont premeal 4U
-diabetes INTERNATIONAL MANAGER following
-advance diet to 1800 ADA
Hypokalemia: 40meq PO K
FULL/Lovenox
Anticipated Discharge: Within 24 hours
Subjective/Interval History
-
Date of Service: July 12, 2024
Objective Data
-
Labs:
Laboratory Results
07/12/24 07/12/24 07/12/24
02:07 05:43 05:43
WBC 5.6
Hgb 11.4 L
Hct 34.1 L
Plt Count 346
Sodium 138 137 Cancelled
Potassium 3.8 3.7
Chloride 105
Carbon Dioxide 22
BUN 15
Creatinine 0.7
Glucose 128 H
Calcium 8.2 L
07/12/24 07/12/24 07/12/24
05:43 05:43 05:43
WBC
Hgb
Hct
Plt Count
Sodium
Potassium Cancelled
Chloride 104 Cancelled
Carbon Dioxide 20 L Cancelled
BUN 14
Creatinine
Glucose
Calcium
07/12/24 07/12/24 07/12/24
05:43 05:43 05:43
WBC
Hgb
Hct
Plt Count
Sodium
Potassium
Chloride
Carbon Dioxide
BUN Cancelled
Creatinine 0.7 Cancelled
Glucose 142 H Cancelled
Calcium 8.6
07/12/24 07/12/24 07/12/24
05:43 10:03 14:00
WBC
Hgb
Hct
Plt Count
Sodium 135 Cancelled
Potassium 3.3 L
Chloride 102
Carbon Dioxide 20 L
BUN 15
Creatinine 0.7
Glucose 277 H
Calcium Cancelled 8.3 L
07/12/24 07/12/24 07/12/24
14:00 14:00 14:00
WBC
Hgb
Hct
Plt Count
Sodium Pending
Potassium Cancelled Pending
Chloride Cancelled Pending
Carbon Dioxide Cancelled
BUN
Creatinine
Glucose
Calcium
07/12/24 07/12/24 07/12/24
14:00 14:00 14:00
WBC
Hgb
Hct
Plt Count
Sodium
Potassium
Chloride
Carbon Dioxide Pending
BUN Cancelled Pending
Creatinine Cancelled Pending
Glucose Cancelled
Calcium
07/12/24 07/12/24 07/12/24
14:00 14:00 18:00
WBC
Hgb
Hct
Plt Count
Sodium Cancelled
Potassium
Chloride
Carbon Dioxide
BUN
Creatinine
Glucose Pending
Calcium Cancelled Pending
07/12/24 07/12/24 07/12/24
18:00 18:00 18:00
WBC
Hgb
Hct
Plt Count
Sodium Pending
Potassium Cancelled Pending
Chloride Cancelled Pending
Carbon Dioxide Cancelled
BUN
Creatinine
Glucose
Calcium
07/12/24 07/12/24 07/12/24
18:00 18:00 18:00
WBC
Hgb
Hct
Plt Count
Sodium
Potassium
Chloride
Carbon Dioxide Pending
BUN Cancelled Pending
Creatinine Cancelled Pending
Glucose Cancelled
Calcium
07/12/24 07/12/24 07/12/24
18:00 18:00 22:00
WBC
Hgb
Hct
Plt Count
Sodium Cancelled
Potassium
Chloride
Carbon Dioxide
BUN
Creatinine
Glucose Pending
Calcium Cancelled Pending
07/12/24 07/12/24 07/12/24
22:00 22:00 22:00
WBC
Hgb
Hct
Plt Count
Sodium Pending
Potassium Cancelled Pending
Chloride Cancelled Pending
Carbon Dioxide Cancelled
BUN
Creatinine
Glucose
Calcium
07/12/24 07/12/24 07/12/24
22:00 22:00 22:00
WBC
Hgb
Hct
Plt Count
Sodium
Potassium
Chloride
Carbon Dioxide Pending
BUN Cancelled Pending
Creatinine Cancelled Pending
Glucose Cancelled
Calcium
07/12/24 07/12/24
22:00 22:00
WBC
Hgb
Hct
Plt Count
Sodium
Potassium
Chloride
Carbon Dioxide
BUN
Creatinine
Glucose Pending
Calcium Cancelled Pending
Vital Signs:
Vital Signs
Temp Pulse Resp BP Pulse Ox
98.1 F 86 19 104/68 96
07/12/24 11:56 07/12/24 12:00 07/12/24 12:00 07/12/24 12:00 07/12/24 07:00
I&O
07/11/24 07/12/24 07/13/24
06:59 06:59 06:59
Intake Total 1012 / 1114 713.5 / 713.5
Output Total 600 / 600
Balance 412 / 514 713.5 / 713.5
[2024-07-12 13:58] LABS: Glucose - Point of Care 117 mg/dl (70-99)
[2024-07-12] MEDS: KCL 40 MEQ PO (14:04)
--- NOTE | 2024-07-12 14:15 | PTCARENOTE ---
insulin drip/ivf off at 1400, pt ordered lunch, will cover with ssi when meal comes
[2024-07-12] MEDS: NOVOLOG FLEXPEN 4 UNITS SC ×2 (15:00→16:49)
[2024-07-12] MEDS: NOVOLOG FLEXPEN-HIGH RESISTANCE 4 UNITS SC (16:49)
[2024-07-12 17:00] LABS: Glucose - Point of Care 242 mg/dl (70-99)
[2024-07-12] MEDS: LOVENOX 40 MG SC (17:42)
--- NOTE | 2024-07-12 18:02 | PTCARENOTE ---
report given to Christine who will assume care of pt upon transfer. Pt aware of transfer.
--- NOTE | 2024-07-12 18:05 | PTCARENOTE ---
Received pt from ICU via wheelchair. Ambulated to bed independently. AAOx3. No complaints of pain. Assessed and oriented to room. Pt verbalized understanding of call mcgrath. Call mcgrath within close reach. Will cont to monitor.
[2024-07-12 22:15] LABS: Glucose - Point of Care 244 mg/dl (70-99)
[2024-07-13 03:07] LABS: Glucose - Point of Care 321 mg/dl (70-99)
[2024-07-13] MEDS: NOVOLOG FLEXPEN 10 UNITS SC (03:14)
[2024-07-13 05:37] LABS: Glucose - Point of Care 158 mg/dl (70-99)
--- NOTE | 2024-07-13 06:23 | PTCARENOTE ---
HS blood sugar 244, MODESTA Michelle notified, instructed to check blood sugar at 0300. Pt updated on POC.
0300 blood sugar 321, MODESTA Michelle updated, refer to MAR for x1 dose of 10 units of Novolog.
Per protocol, two hour post insulin administration blood sugar 158
[2024-07-13 07:07] LABS: Glucose - Point of Care 131 mg/dl (70-99)
[2024-07-13 07:18] LABS: Hematocrit 34.4 % (39.0-52.0); Mean Corpuscular Volume 65.6 fL (80.0-94.0); Platelet Count 299 10^3/uL (130-400); Red Blood Cell Count 5.24 10^6/uL (4.70-6.10)
[2024-07-13 07:27] LABS: Blood Urea Nitrogen 10 mg/dl (9-20); Calcium 8.8 mg/dl (8.4-10.2); Carbon Dioxide 27 mmol/L (22-30); Chloride 102 mmol/L (98-107); Estimated Creatinine Clearance > 125 ml/min; Glucose 119 mg/dl (70-99); Potassium 3.7 mmol/L (3.5-5.1); Sodium 140 mmol/L (135-145); eGFR > 60.00
--- NOTE | 2024-07-13 07:35 | PN.DE.MGMTRT ---
Insulin Management
- -
07/13/2024: Diabetes management Consult Follow up
Patient admitted with D/N/V due to DKA, managed on DKA protocol.
PMH: T1DM x 22 years.
Pt is awake, alert, resting in bed. Pt able to discuss diabetes mgt.
Yesterday he reported he was using a tandem insulin pump with a CGM- Dexcom G7 but changed insurance which disrupted his usual order of refills. Today he states Octaviano Garcia PA-C at [facility] had told him he needed a longer needle for
the infusion set. He could not afford that so he stopped his pump and went to injections.
Says he started taking Lantus and NovoLog AC, which was ordered by his Endocrine office- Octaviano NG. He states that he started out taking 20 units of Lantus@ HS and NovoLog 10-15 units AC, but his insulin requirements kept going up and he
started increasing his insulin doses, with the most recent dose of 50 to 70 units @ HS and NovoLog 20 units AC.
He is using an over the counter glucose monitor from [facility] due to cost
States he ran out of Lantus 2 weeks ago and that his NovoLog is about to run out as well. He is requesting for a refill for both Lantus and NovoLog
Patient received 10 units lantus ~ noon, glucose up to 321 overnight. @ 3am glucose 321, patient received 10 units novolog. Fasting today 131. 14 units lantus ordered now and to start 22 units @ hs. with novolog increased to 8 units AC , high
resistance reduced to moderate.
Patient states he upgraded his insurance today so his supplies should be more affordable. He plans to resume his insulin pump at discharge. Encouraged him to call Octaviano @ the endocrine office and make an appointment KEESHA so his pump settings can be
evaluated before resuming his pump. He is agreeable.
Discussed with patients nurse and patient.
Diabetes History
- -
Type of Diabetes: 1
Pre-Admission Diabetes Regimen
07/12/24 07/12/24 07/12/24
10:03 14:00 14:00
Creatinine 0.7 Cancelled Cancelled
07/12/24 07/12/24 07/12/24
18:00 18:00 22:00
Creatinine Cancelled Cancelled Cancelled
07/12/24 07/13/24 07/13/24
22:00 00:06 06:51
Creatinine Cancelled Cancelled 0.8
Lab Results
Hemoglobin A1c 10.6 % (4.0-5.6) H 07/11/24 22:20
Insulin Pump Settings
IP Diabetes Regimen
07/12/24 07/12/24 07/12/24
08:06 09:29 10:03
Glucose 277 H
POC Glucose 112 H 253 H
07/12/24 07/12/24 07/12/24
10:55 12:01 13:47
Glucose
POC Glucose 205 H 125 H 117 H
07/12/24 07/12/24 07/12/24
14:00 14:00 16:48
Glucose Cancelled Cancelled
POC Glucose 242 H
07/12/24 07/12/24 07/12/24
18:00 18:00 22:00
Glucose Cancelled Cancelled Cancelled
POC Glucose
07/12/24 07/12/24 07/13/24
22:00 22:14 00:06
Glucose Cancelled Cancelled
POC Glucose 244 H
07/13/24 07/13/24 07/13/24
03:06 05:35 06:51
Glucose 119 H
POC Glucose 321 H 158 H
07/13/24
07:06
Glucose
POC Glucose 131 H
Meal type: Dinner
Meal type: Lunch
Amount consumed: 100%
Amount consumed: 100%
Patient Education
--- NOTE | 2024-07-13 07:43 | W.PN.HOSP.TC ---
Today's Communication/Plan
-
see bold
Assessment / Plan
Assessment / Plan
Gen: remains NAD, AAOx3.
Eyes: EOMI, PERRLA, no scleral icterus.
Neck: supple.
CV: remains RRR, +S1/S2, no m/r/g.
Resp: remains CTAB, no rales, wheezes, or rhonchi.
Abd: +BS, soft, NT, ND
Skin: No rashes.
Neuro: CN 2-12 intact, non-focal.
Psych: Normal mood and affect.
DKA:
-due to noncompliance with basal/long-acting insulin
-AG closed after insulin gtt
-Lantus 14U now then 22U this evening
-cont premeal 4U
-diabetes CURB HOP following, d/w'd Mechelle Mishra
-1800 ADA diet
-follow BGs over next 24 hours
Hypokalemia, resolved
FULL/Lovenox
Anticipated Discharge: Within 24 hours
Subjective/Interval History
-
Date of Service: July 13, 2024
No new complaints.
Objective Data
-
Labs:
Laboratory Results
07/13/24 07/13/24
00:06 06:51
WBC 4.0 L
Hgb 11.0 L
Hct 34.4 L
Plt Count 299
Sodium Cancelled 140
Potassium Cancelled 3.7
Chloride Cancelled 102
Carbon Dioxide Cancelled 27
BUN Cancelled 10
Creatinine Cancelled 0.8
Glucose Cancelled 119 H
Calcium Cancelled 8.8
Vital Signs:
Vital Signs
Temp Pulse Resp BP Pulse Ox
98.1 F 81 18 116/68 97
07/12/24 23:00 07/12/24 23:00 07/12/24 23:00 07/12/24 23:00 07/12/24 23:00
I&O
07/12/24 07/13/24 07/14/24
06:59 06:59 06:59
Intake Total 1012 / 1114 1193.5 / 1193.5
Output Total 600 / 600 220 / 220
Balance 412 / 514 973.5 / 973.5
[2024-07-13 07:47] VITALS: BP 124/97
[2024-07-13 08:02] LABS: Glucose - Point of Care 157 mg/dl (70-99)
[2024-07-13] MEDS: NOVOLOG FLEXPEN 4 UNITS SC ×2 (08:15→12:22)
[2024-07-13] MEDS: NOVOLOG FLEXPEN-HIGH RESISTANCE 2 UNITS SC (08:15)
[2024-07-13] MEDS: LANTUS 0.14 UNITS SC (09:43)
--- NOTE | 2024-07-13 11:46 | CM ---
Patient seen bedside.
Per patient still monitoring blood sugars.
Patient denies home care needs or insulin assistance.
Per patient he just got off the phone from upgrading his insurance so insulin costs will be less OOP.
Plan: home with parents.
[2024-07-13 11:49] LABS: Glucose - Point of Care 236 mg/dl (70-99)
[2024-07-13] MEDS: NOVOLOG FLEXPEN-HIGH RESISTANCE 8 UNITS SC (12:22)
[2024-07-13 15:13] VITALS: BP 117/68
[2024-07-13 16:09] LABS: Glucose - Point of Care 214 mg/dl (70-99)
[2024-07-13] MEDS: LOVENOX 40 MG SC (17:19)
[2024-07-13] MEDS: NOVOLOG FLEXPEN-MODERATE RESISTANCE 3 UNITS SC (18:03)
[2024-07-13] MEDS: NOVOLOG FLEXPEN 8 UNITS SC (18:03)
[2024-07-13] MEDS: LANTUS 0.22 UNITS SC (20:36)
[2024-07-13 20:37] LABS: Glucose - Point of Care 176 mg/dl (70-99)
[2024-07-13 23:24] VITALS: BP 115/69
--- NOTE | 2024-07-14 04:11 | DOWNTIME ---
There was a [employer] Client Digital Marketing Consultant Downtime on 07/14/2024 from 0100 to 07/14/2024 at 0350. Downtime documentation of patient's care, including medication administrations, has been reconciled in the electronic record per guidelines. Refer to the
patient's paper chart under the miscellaneous tab to see printed paper medication records and downtime forms.
--- NOTE | 2024-07-14 07:19 | PN.DE.MGMTRT ---
Insulin Management
- -
07/14/2024: Diabetes management Consult Follow up
Patient admitted with D/N/V due to DKA, managed on DKA protocol.
PMH: T1DM x 22 years.
Pt is awake, alert, resting in bed. Pt able to discuss diabetes mgt.
Yesterday he reported he was using a tandem insulin pump with a CGM- Dexcom G7 but changed insurance which disrupted his usual order of refills. Today he states Octaviano Garcia PA-C at [facility] had told him he needed a longer needle for
the infusion set. He could not afford that so he stopped his pump and went to injections.
Says he started taking Lantus and NovoLog AC, which was ordered by his Endocrine office- Octaviano NG. He states that he started out taking 20 units of Lantus@ HS and NovoLog 10-15 units AC, but his insulin requirements kept going up and he
started increasing his insulin doses, with the most recent dose of 50 to 70 units @ HS and NovoLog 20 units AC.
He is using an over the counter glucose monitor from [facility] due to cost
States he ran out of Lantus 2 weeks ago and that his NovoLog is about to run out as well. He is requesting for a refill for both Lantus and NovoLog
07/13 Patient received 14 units lantus in AM, glucose up to 236 pre lunch. Ac novolog increased to 8 units, high resistance reduced to moderate. 22 units lantus @ HS last evening.
07/14 Fasting glucose today 229. Will increase HS lantus to 26 units and AC novolog to 10.
Patient states he upgraded his insurance today so his supplies should be more affordable. He plans to resume his insulin pump at discharge. Encouraged him to call Octaviano @ the endocrine office; which he did, he states he has an appointment July
5 @ 9:15. Reinforced his pump settings must be evaluated before resuming his pump. He is agreeable.
Discussed with patients nurse and patient.
Diabetes History
- -
Type of Diabetes: 1
Pre-Admission Diabetes Regimen
07/13/24
06:51
Creatinine 0.8
Lab Results
Hemoglobin A1c 10.6 % (4.0-5.6) H 07/11/24 22:20
Insulin Pump Settings
IP Diabetes Regimen
07/13/24 07/13/24 07/13/24
06:51 08:00 11:47
Glucose 119 H
POC Glucose 157 H 236 H
07/13/24 07/13/24
16:07 20:33
Glucose
POC Glucose 214 H 176 H
Meal type: Lunch
Meal type: Breakfast
Amount consumed: 100%
Amount consumed: 100%
Patient Education
[2024-07-14 07:22] LABS: Hematocrit 36.8 % (39.0-52.0); Hemoglobin 11.8 g/dL (13.0-18.0); Mean Corp Hgb Conc. 32.1 g/dL (33.0-37.0); Mean Corpuscular Volume 65.6 fL (80.0-94.0); Mean Platelet Volume 9.9 fL (7.4-10.4); Platelet Count 279 10^3/uL (130-400); Red Blood Cell Count 5.61 10^6/uL (4.70-6.10); Red Cell Dist. Width 16.1 % (11.5-14.5); White Blood Cell Count 3.7 10^3/uL (4.8-10.8)
[2024-07-14 07:30] VITALS: BP 133/92
[2024-07-14] MEDS: NOVOLOG FLEXPEN 8 UNITS SC (08:04)
[2024-07-14] MEDS: NOVOLOG FLEXPEN-MODERATE RESISTANCE 3 UNITS SC (08:05)
[2024-07-14 08:09] LABS: Glucose - Point of Care 229 mg/dl (70-99)
--- NOTE | 2024-07-14 08:34 | W.PN.HOSP.TC ---
Today's Communication/Plan
-
d/c
Assessment / Plan
Assessment / Plan
Gen: continues to remain NAD, AAOx3.
Eyes: EOMI, PERRLA, no scleral icterus.
Neck: supple.
CV: continues to remain RRR, +S1/S2, no m/r/g.
Resp: continues to remain CTAB, no rales, wheezes, or rhonchi.
Abd: +BS, soft, NT, ND
Skin: No rashes.
Neuro: CN 2-12 intact, non-focal.
Psych: Normal mood and affect.
DKA:
-due to noncompliance with basal/long-acting insulin
-AG closed after insulin gtt
-diabetes PROCESS ASSISTANT following, d/w'd Pat Tad
-1800 ADA diet
-d/c on Lantus 26U, premeal insulin 10U
Hypokalemia, resolved
FULL/Lovenox
Total time spent on d/c = 31 min. This included today's physical exam, progress note, review of laboratory and diagnostic data, preparation of discharge documents and prescriptions, and discussions about the pt's hospital course and discharge plan
with the patient and other er medical technician involved in the patient's care.
Anticipated Discharge: Today
Subjective/Interval History
-
Date of Service: July 14, 2024
No new complaints.
Objective Data
-
Labs:
Laboratory Results
07/14/24
06:47
WBC 3.7 L
Hgb 11.8 L
Hct 36.8 L
Plt Count 279
Vital Signs:
Vital Signs
Temp Pulse Resp BP Pulse Ox
97.8 F 74 16 115/69 98
07/13/24 23:24 07/13/24 23:24 07/13/24 23:24 07/13/24 23:24 07/13/24 23:24
I&O
07/13/24 07/14/24 07/15/24
06:59 06:59 06:59
Intake Total 1193.5 / 1193.5 1080 / 1080
Output Total 220 / 220
Balance 973.5 / 973.5 1080 / 1080
[2024-07-14 10:00] VITALS: BP 128/68
--- NOTE | 2024-07-15 11:37 | W.DCSUMMARY ---
Discharge Summary
Discharge Data
Date of Admission: 07/11/24
Date of Discharge: 07/14/24
-
Pending Results: No
Hospital Course
Primary diagnoses:
Diabetic ketoacidosis due to insulin noncompliance
Secondary diagnoses:
Hypokalemia
Consultants:
Diabetes nurse practitioner
Critical care
Imaging:
CXR: Unremarkable exam
Hospital course: 33-year-old male who presented with chief complaint of vomiting as outlined in the H&P done on admission. He had been noncompliant with his Lantus. He had an anion gap metabolic acidosis due to diabetic ketoacidosis. He was
placed on IV fluids and insulin drip. His anion gap closed. His insulins were adjusted based on his blood glucose trend while hospitalized. He was discharged in medically stable condition.
Discharge Plan
-
Patient Disposition: Home (Routine Discharge)
Discharge Diagnosis/Procedures: diabetic ketoacidosis
Condition: Good
Diet: Diabetic, Carb Controlled
Activity: No restrictions
Driving Restrictions: As prior to admission
Referrals:
UNKNOWN - PT DOES,NOT KNOW [Family Provider] - in less than 1 week
Prescriptions:
New
insulin aspart U-100 [Novolog FlexPen U-100 Insulin] 100 unit/mL (3 mL) insulin pen
10 unit SC TID Qty: 15 0RF
Continued
therapeutic multivitamin Tablet
1 tab PO DAILY
Changed
insulin glargine [Lantus Solostar U-100 Insulin] 300 UNITS/3 ML insulin pen
26 unit SC HS Qty: 0 0RF
Patient Comments:
07/11/24: Patient has been out of this medication for weeks, needs to get it refilled.
Discontinued
ibuprofen 200 mg Tablet
600 mg PO DAILY
insulin aspart U-100 [Novolog FlexPen U-100 Insulin] 100 unit/mL (3 mL) Insulin Pen
10 - 15 unit SC TID
Patient Comments:
07/11/24: Changes dosage depending on meal
Discharge Orders:
Discharge Patient (As Directed); Ordered 07/14/24
Ordered By: Osvaldo Jenkins
Discharge Date and Time
Discharge Date/Time: 07/14/24 10:52
Print Language: AMERICAN
== END 2024-07-14 10:52 | disposition home or self-care (01) | DRG 639 ==
LOC: 3 WEST ACU 19:41
PROVIDERS: Nurse Practitioner Family; Physician Assistant; Registered Nurse; ADMITTING PHYSICIAN Internal Medicine; ATTENDING PHYSICIAN Internal Medicine; EMERGENCY PHYSICIAN Emergency Medicine; OTHER PHYSICIAN Internal Medicine
DX: E10.10 Type 1 diabetes mellitus with ketoacidosis without coma (principal); E78.5 Hyperlipidemia, unspecified; E86.0 Dehydration; T38.3X6A Underdosing of insulin and oral hypoglycemic [antidiabetic] drugs, initial encounter; Z91.138 Patient's unintentional underdosing of medication regimen for other reason; Z11.52 Encounter for screening for COVID-19; Z88.8 Allergy status to other drugs, medicaments and biological substances
CPT/HCPCS: 71045; 80048; 80053; 81003; 82010; 82805; 82962; 83036; 83735; 84100; 85025; 85027; 85610; 85730; 87502; 87811; 93005; 96360; 99291

== ENCOUNTER → 2025-03-16 17:51 | Outpatient (REF) | payer OTHER, SELFPAY | LOC: UCDH 17:51 | PROVIDERS: ATTENDING PHYSICIAN Physician Assistant; FAMILY PHYSICIAN Internal Medicine | DX: R07.81 Pleurodynia (principal) | CPT/HCPCS: 71101 ==